=== PATIENT | male | born 1985 | race Caucasian/White ===

== ENCOUNTER 2019-09-13 14:55 | Outpatient (REF) | payer OTHER, SELFPAY | END 2019-09-13 15:15 | LOC: LBN 14:55 | PROVIDERS: PCP Family Medicine; Visit Provider Family Medicine | DX: R63.4 Abnormal weight loss (principal) | CPT/HCPCS: 87177 ==

== ENCOUNTER 2021-12-18 14:55 | Outpatient (CLI) | payer OTHER, SELFPAY ==
--- NOTE | 2021-12-18 14:45 | RT.EKG_ITS ---
APPROVED REPORT Exam: Resting ECG Reason for Exam: Baseline EKG for concerta use Patient Location: O HR:90 bpm ECG Measurements Heart Rate 90 AXIS WI 141 P 79 QRSd 93 QRS 62 QT 315 T 63 QTc 386 Conclusion Sinus rhythm...normal P axis, V-rate 50- 99 ST elev, probable normal early repol pattern...ST elevation, age<55
== END 2021-12-18 14:56 | disposition home or self-care (01) ==
LOC: DI.KIM 14:56
PROVIDERS: PCP Family Medicine; Visit Provider Family Medicine
DX: Z79.899 Other long term (current) drug therapy (principal)
CPT/HCPCS: 93010

== ENCOUNTER 2022-03-23 13:07 | Outpatient (CLI) | payer OTHER, SELFPAY ==
--- NOTE | 2022-03-23 09:15 | DI.RAD_ITS ---
Exam(s) XR CHEST 2V PA LATERAL EXAM: XR CHEST 2V PA LATERAL CLINICAL HISTORY: 6 months of cough of without obvious cause,r05.3. TECHNIQUE: 2D digital imaging was performed. COMPARISON: No exams were available for comparison FINDINGS: 2 views: Heart size is normal. The mediastinum is not widened. Lungs are clear. No infiltrates nor pleural effusions. IMPRESSION: No acute pulmonary findings. DATA REPOSITORY: RADIATION DOSE DELIVERED:
== END 2022-03-23 13:27 ==
LOC: DI 13:08
PROVIDERS: PCP Family Medicine; Visit Provider Family Medicine
DX: R05.3 Chronic cough (principal)
CPT/HCPCS: 71046

== ENCOUNTER 2022-04-05 02:53 | Outpatient (CLI) | payer OTHER, SELFPAY ==
[2022-04-05 10:22] LABS: Abs Immature Grans 0.01 10^3/uL (0.0-0.06); Absolute Basophil Count 0.04 10^3/uL (0.0-0.2); Absolute Eosinophil Count 0.18 10^3/uL (0.0-0.7); Absolute Lymphocyte Count 1.89 10^3/uL (1.2-3.4); Absolute Monocyte Count 0.57 10^3/uL (0.1-0.8); Absolute Neutrophil Count 3.45 10^3/uL (1.2-6.7); Basophils % 0.7; Eosinophils % 2.9; HCT 49.2 % (40.0-50.0); HGB 16.4 g/dL (13.5-17.5); Immature Grans % 0.2; Lymphocytes % 30.8; MCH 29.7 pg (27.0-33.0); MCHC 33.3 % (32.0-36.0); MCV 89 fL (80-95); MPV 8.9 fL (8.0-11.0); Monocytes % 9.3; Neutrophils % 56.1; Platelet Count 236 10^3/uL (130-400); RBC 5.52 10^6/uL (4.36-5.78); RDW 11.9 % (11.8-14.1); RDW-SD 38.3 fL; WBC 6.14 10^3/uL (4.4-10.8)
[2022-04-05 10:48] LABS: ALT 50 U/L (16-63); AST 22 U/L (15-37); Albumin 4.3 g/dL (3.4-5.0); Alkaline Phosphatase 86 U/L (46-116); Anion Gap 4.8 mmol/L (3-11); BUN 12 mg/dL (7-18); CO2 33.2 mmol/L (21.0-32.0); CREATININE 1.1 mg/dL (0.70-1.30); Calcium 9.6 mg/dL (8.5-10.1); Calculated LDL 93 mg/dL (<100); Chloride 104 mmol/L (98-107); Cholesterol 202 mg/dL (<200); Estimated GFR 90.34 (mL/min/1.73m2); Glucose 94 mg/dL (74-106); HDL Cholesterol 80 mg/dL (40-60); Sodium 142 mmol/L (136-145); Total Protein 8.1 g/dL (6.4-8.2); Triglyceride 147 mg/dL (<150)
[2022-04-06 10:21] LABS: Hepatitis C Ab w Rflx HCV PCR Negative (Negative)
[2022-04-06 10:33] LABS: HIV-1/2 Ag & Ab Screen Negative (Negative)
[2022-04-07 09:44] LABS: IgE 341 IU/mL (<158)
== END 2022-04-05 02:54 | disposition home or self-care (01) ==
LOC: LBO 02:53
PROVIDERS: Absent Provider Family Medicine; PCP Family Medicine; Referring Provider Family Medicine; Visit Provider Family Medicine
DX: Z13.220 Encounter for screening for lipoid disorders (principal); R05.3 Chronic cough; Z11.3 Encounter for screening for infections with a predominantly sexual mode of transmission
CPT/HCPCS: 36415; 80053; 80061; 86803; 87389; 82785; 85025

== ENCOUNTER 2022-05-11 04:02 | Outpatient (CLI) | payer OTHER, SELFPAY ==
[2022-05-11] MEDS: Methacholine 100 MG VIAL IH (12:25)
[2022-05-11] MEDS: Albuterol HFA 18 GM 200 PUFF INH IH (12:26)
[2022-05-11] MEDS: Inhaler, Assist Device 1 EACH MC (12:26)
--- NOTE | 2022-05-13 10:32 | PFT_ITS ---
Date of service: 05/11/22 Time of Service: 10:07 Pulmonary Function Test Result Indications: Chronic cough Interpretation Spirometry: There is mild airflow limitation. There was a 34% decrease in FEV1% with admini stration of 1mg/mL methacholine. Lung Volumes: Normal lung volumes Diffusion Capacity: Normal diffusion Airway Pressure: Normal airways resistance Impression Mild airflow obstruction with a strongly positive methacholine challenge. Clinical Correlation therefore is recommended.
== END 2022-05-11 04:03 | disposition home or self-care (01) ==
LOC: RT 04:02
PROVIDERS: PCP Family Medicine; Visit Provider Student in an Organized Health Care Education/Training Program
DX: R05.3 Chronic cough (principal)
CPT/HCPCS: 94060; 94070; 94726; 94729; 94010; J7674

== ENCOUNTER 2023-07-19 16:28 | Outpatient (CLI) | payer OTHER, SELFPAY ==
[2023-07-19 16:24] LABS: Abs Immature Grans 0.02 10^3/uL (0.0-0.06); HCT 48.1 % (40.0-50.0); HGB 16.1 g/dL (13.5-17.5); MCH 29.6 pg (27.0-33.0); MCHC 33.5 % (32.0-36.0); MCV 88 fL (80-95); MPV 9.5 fL (8.0-11.0); Platelet Count 131 10^3/uL (130-400); RBC 5.44 10^6/uL (4.36-5.78); WBC 10.11 10^3/uL (4.4-10.8)
[2023-07-19 16:33] LABS: Bilirubin Small (Negative); Blood Negative (Negative); Clarity Clear (Clear); Glucose Negative (Negative); Ketones Trace mg/dL (Negative); Leukocyte Esterase Negative (Negative); Nitrite Negative (Negative); Specific Gravity >= 1.030 (1.005-1.025); pH 5.5 (5-8)
[2023-07-19 16:40] LABS: Absolute Lymphocyte Count 6.37 10^3/uL (1.2-3.4); Absolute Monocyte Count 0.81 10^3/uL (0.1-0.8); Absolute Neutrophil Count 2.83 10^3/uL (1.2-6.7); Atypical Lymphocytes % 12 %
[2023-07-19 16:41] LABS: Diff Comment Manual Differential; RBC Morphology Normal
[2023-07-19 16:48] LABS: RBC 0-2 HPF (0-2); WBC 0-2 HPF (0-5)
[2023-07-19 16:49] LABS: Bacteria Negative HPF (Negative); C & S Indicated? No; Crystals Negative HPF (Negative); Epithelial Cells Rare HPF (Negative); Mucus Heavy (Negative)
[2023-07-19 17:39] LABS: ALT 205 U/L (16-63); AST 108 U/L (15-37); Albumin 3.9 g/dL (3.4-5.0); Alkaline Phosphatase 246 U/L (46-116); Anion Gap 8.3 mmol/L (3-11); BUN 9 mg/dL (7-18); Bilirubin, Total 1.2 mg/dL (0.2-1.0); C-Reactive Protein 1.33 mg/dL (<or=0.5); CO2 30.7 mmol/L (21.0-32.0); CREATININE 1.1 mg/dL (0.70-1.30); Calcium 8.9 mg/dL (8.5-10.1); Chloride 103 mmol/L (98-107); Estimated GFR 89.78 (mL/min/1.73m2); Glucose 91 mg/dL (74-106); Potassium 3.8 mmol/L (3.5-5.1); Sodium 142 mmol/L (136-145); TSH (W/Ref FT4) 2.84 uIU/mL (0.36-3.74); Total Protein 7.4 g/dL (6.4-8.2)
[2023-07-21 11:58] LABS: Lyme Ab w Rflx to Lyme Confirm Negative (Negative)
[2023-07-22 23:38] LABS: Anaplasma phagocytophilum Negative (Negative); B. miyamotoi PCR Negative (Negative); Babesia divergens/MO-1 Negative (Negative); Babesia duncani Negative (Negative); Babesia microti Negative (Negative); Ehrlichia chaffeensis Negative (Negative); Ehrlichia ewingii/canis Negative (Negative); Ehrlichia muris eauclairensis Negative (Negative)
== END 2023-07-19 16:29 | disposition home or self-care (01) ==
LOC: LBO 16:28
PROVIDERS: Nurse Practitioner Adult Health; PCP Family Medicine; Visit Provider Family Medicine
DX: R50.9 Fever, unspecified (principal)
CPT/HCPCS: 36415; 80053; 87798; 81003; 81015; 84443; 85025; 86140; 86618

== ENCOUNTER 2023-07-25 10:44 | Outpatient (CLI) | payer OTHER, SELFPAY ==
[2023-07-25 16:58] LABS: Abs Immature Grans 0.01 10^3/uL (0.0-0.06); HCT 48.1 % (40.0-50.0); HGB 16.1 g/dL (13.5-17.5); MCH 29.7 pg (27.0-33.0); MCHC 33.5 % (32.0-36.0); MCV 89 fL (80-95); MPV 8.9 fL (8.0-11.0); Platelet Count 210 10^3/uL (130-400); RBC 5.43 10^6/uL (4.36-5.78); RDW 12.6 % (11.8-14.1); RDW-SD 40.5 fL; WBC 7.25 10^3/uL (4.4-10.8)
[2023-07-25 17:28] LABS: Absolute Eosinophil Count 0.15 10^3/uL (0.0-0.7); Absolute Lymphocyte Count 4.57 10^3/uL (1.2-3.4); Absolute Monocyte Count 0.73 10^3/uL (0.1-0.8); Absolute Neutrophil Count 1.81 10^3/uL (1.2-6.7); Atypical Lymphocytes % 3 %; Diff Comment Manual Differential; RBC Morphology Normal
[2023-07-25 19:30] LABS: ALT 203 U/L (16-63); AST 86 U/L (15-37); Albumin 3.9 g/dL (3.4-5.0); Alkaline Phosphatase 259 U/L (46-116); Anion Gap 10.2 mmol/L (3-11); BUN 17 mg/dL (7-18); Bilirubin, Total 1.1 mg/dL (0.2-1.0); CO2 25.8 mmol/L (21.0-32.0); CREATININE 1.1 mg/dL (0.70-1.30); Calcium 8.8 mg/dL (8.5-10.1); Chloride 105 mmol/L (98-107); Estimated GFR 89.78 (mL/min/1.73m2); Glucose 83 mg/dL (74-106); Sodium 141 mmol/L (136-145); Total Protein 7.5 g/dL (6.4-8.2)
[2023-07-27 11:05] LABS: EBNA IgG Negative (Negative); EBV Interpretation (See Note); VCA IgG Positive (Negative); VCA IgM Positive (Negative)
[2023-07-27 11:24] LABS: Hepatitis A Antibody IgM Negative (Negative); Hepatitis B Core Antibody Negative (Negative); Hepatitis B surface Ag Negative (Negative); Hepatitis C Ab w Rflx HCV PCR Negative (Negative)
== END 2023-07-25 10:45 | disposition home or self-care (01) ==
LOC: LBO 07-26 10:45
PROVIDERS: PCP Family Medicine; Visit Provider Nurse Practitioner Adult Health
DX: R74.01 Elevation of levels of liver transaminase levels (principal); R50.9 Fever, unspecified; R53.83 Other fatigue
CPT/HCPCS: 36415; 80053; 86704; 86709; 86803; 87340; 85025; 86664; 86665

== ENCOUNTER 2023-07-25 16:47 | Outpatient (REF) | payer OTHER, SELFPAY | END 2023-07-25 16:48 | disposition home or self-care (01) | LOC: LBN 16:47 | PROVIDERS: PCP Family Medicine; Visit Provider Nurse Practitioner Adult Health | DX: J02.9 Acute pharyngitis, unspecified (principal) | CPT/HCPCS: 87070 ==

== ENCOUNTER 2023-07-27 11:51 | Outpatient (CLI) | payer OTHER, SELFPAY ==
[2023-07-27 13:05] LABS: Mono Screening POSITIVE (Negative)
== END 2023-07-27 11:52 | disposition home or self-care (01) ==
LOC: LBO 11:54
PROVIDERS: PCP Family Medicine; Visit Provider Nurse Practitioner
DX: R53.83 Other fatigue (principal); R50.9 Fever, unspecified; R74.01 Elevation of levels of liver transaminase levels; J02.9 Acute pharyngitis, unspecified
CPT/HCPCS: 36415; 86308

== ENCOUNTER 2023-08-29 02:07 | Outpatient (CLI) | payer OTHER, SELFPAY ==
[2023-08-29 12:48] LABS: ALT 26 U/L (16-63); AST 15 U/L (15-37); Alkaline Phosphatase 79 U/L (46-116); Anion Gap 5.8 mmol/L (3-11); BUN 16 mg/dL (7-18); Bilirubin, Total 0.89 mg/dL (0.2-1.0); CO2 32.2 mmol/L (21.0-32.0); Chloride 106 mmol/L (98-107); Estimated GFR 100.66 (mL/min/1.73m2); Glucose 95 mg/dL (74-106); Potassium 4.2 mmol/L (3.5-5.1); Sodium 144 mmol/L (136-145); Total Protein 7.6 g/dL (6.4-8.2)
== END 2023-08-29 02:08 | disposition home or self-care (01) ==
PROVIDERS: PCP Family Medicine; Referring Provider Family Medicine; Visit Provider Nurse Practitioner Adult Health
DX: R74.01 Elevation of levels of liver transaminase levels (principal)
CPT/HCPCS: 36415; 80053

== ENCOUNTER 2024-03-16 04:43 | Emergency (ER) | payer BC, SELFPAY ==
[2024-03-16 04:45] VITALS: BP 129/45; PULSE 96; RESP 22; TEMP 37; O2SAT 97
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
[2024-03-16 05:00] LABS: Lactate 1.2 mmol/L (<or=2.0)
[2024-03-16] MEDS: ACETAMINOPHEN 1,000 MG/100 ML BAG 400 MG IVPB (05:01)
[2024-03-16] MEDS: Ketorolac 15 MG/ML VIAL IVP (05:01)
[2024-03-16] MEDS: Normal Saline 1,000 ML 1000 ML IV (05:02)
[2024-03-16 05:03] LABS: Abs Immature Grans 0.02 10^3/uL (0.0-0.06); Absolute Basophil Count 0.04 10^3/uL (0.0-0.2); Absolute Eosinophil Count 0.15 10^3/uL (0.0-0.7); Absolute Lymphocyte Count 1.51 10^3/uL (1.2-3.4); Absolute Monocyte Count 0.77 10^3/uL (0.1-0.8); Absolute Neutrophil Count 6.12 10^3/uL (1.2-6.7); Basophils % 0.5 %; Eosinophils % 1.7 %; HCT 47.2 % (40.0-50.0); HGB 16.2 g/dL (13.5-17.5); Immature Grans % 0.2 %; Lymphocytes % 17.5 %; MCH 30.3 pg (27.0-33.0); MCHC 34.3 % (32.0-36.0); MCV 88 fL (80-95); Monocytes % 8.9 %; Neutrophils % 71.2 %; Platelet Count 230 10^3/uL (130-400); RBC 5.34 10^6/uL (4.36-5.78); RDW 11.5 % (11.8-14.1); WBC 8.61 10^3/uL (4.4-10.8)
[2024-03-16 05:17] LABS: ALT 39 U/L (16-63); AST 16 U/L (15-37); Albumin 4.1 g/dL (3.4-5.0); Alkaline Phosphatase 71 U/L (46-116); Anion Gap 6.7 mmol/L (3-11); BUN 12 mg/dL (7-18); Bilirubin, Total 1.69 mg/dL (0.2-1.0); CO2 29.3 mmol/L (21.0-32.0); CREATININE 1.2 mg/dL (0.70-1.30); Calcium 9.5 mg/dL (8.5-10.1); Chloride 102 mmol/L (98-107); Estimated GFR 80.38 (mL/min/1.73m2); Glucose 121 mg/dL (74-106); Potassium 3.6 mmol/L (3.5-5.1); Sodium 138 mmol/L (136-145); Total Protein 7.4 g/dL (6.4-8.2)
[2024-03-16] MEDS: Tamsulosin 0.4 MG CAPCR PO (05:29)
--- NOTE | 2024-03-16 05:30 | DI.CT_ITS ---
Exam(s) CT ABDOMEN PELVIS WO EXAM: CT ABDOMEN PELVIS WO CLINICAL HISTORY: left flank pain, eval kidney stone vs divertic. TECHNIQUE: Imaging Protocol: Axial computed tomography images with coronal and sagittal reformatted images were created and reviewed. Oral: no COMPARISON: No exams were available for comparison FINDINGS: Lung Bases: No acute findings. Liver: Normal density. No suspicious mass. Gallbladder and biliary tract: No radiodense calculus or biliary dilation. Pancreas: Normal density. No abnormal calcifications or inflammatory process. Spleen: Normal. Kidneys: Normal size, contour and axis. Mild left hydronephrosis secondary to a 4 millimeter stone i n the upper left ureter. No additional calculi are identified. No suspicious masses seen. Adrenal glands: No masses seen. Lymph nodes: Within normal limits. Vasculature: Abdominal aorta non-dilated. Soft tissues: Unremarkable. Bladder: No wall thickening. No mass or calculi. Bowel: No obstruction or bowel wall thickening. Peritoneal cavity: No ascites. No focal collection. No mesenteric inflammatory response. Reproductive organs: Unremarkable. Bones: Unremarkable for age. IMPRESSION: Mild left hydronephrosis secondary to a 4 millimeter stone at the upper ureter. No additional calcul i. RADIATION DOSE DELIVERED: 605.88mGy.cm Total DLP DATA REPOSITORY: All CT scans at this facility are submitted to the National Radiology Data Registry (NRDR) Dose Index Registry (DIR) with the [employer] (ACR). RADIATION OPTIMIZATION: All CT scans at this facility use at least one of these dose optimization te chniques: automated exposure control; mA and/or kV adjustment per patient size (includes targeted exa ms where dose is matched to clinical indication); or iterative reconstruction.
--- NOTE | 2024-03-16 05:48 | DI.VRAD_ITS ---
PROCEDURE INFORMATION: Exam: CT Abdomen And Pelvis Without Contrast Exam date and time: 03/16/2024 5:20 AM Age: 38 years old Clinical indication: Abdominal pain; Left flank pain, eval kidney stone vs divertic. Patient says they have no HX of kidney stone and no visible blood in urine TECHNIQUE: Imaging protocol: Computed tomography of the abdomen and pelvis without contrast. Radiation optimization: All CT scans at this facility use at least one of these dose optimization techniques: automated exposure control; mA and/or kV adjustment per patient size (includes targeted exams where dose is matched to clinical indication); or iterative reconstruction. COMPARISON: No relevant prior studies are available for comparison. FINDINGS: Limitations: No intravenous contrast was administered, limiting evaluation for some pathologies. Liver: Mild hepatomegaly. Gallbladder and biliary ducts: No radiodense gallbladder calculi seen. Pancreas: No CT evidence for acute pancreatitis. Spleen: No splenomegaly. Adrenal glands: Adrenal thickening. Kidneys and ureters: Left hydroureteronephrosis. 5 mm calculus in the mid left ureter. Stomach and bowel: No intestinal obstruction appreciated. Appendix: No evidence of appendicitis. Intraperitoneal space: No free air. Vasculature: No abdominal aortic aneurysm. Lymph nodes: Nonspecific mesenteric and retroperitoneal lymph nodes. Urinary bladder: No acute findings. Reproductive: No acute findings. Bones/joints: No pertinent acute abnormality seen. Soft tissues: No pertinent acute abnormality seen. IMPRESSION: Obstructing left ureteral calculus. Dictated and Authenticated by: Vianney Min MD. Orderin Mandy Reich MD
[2024-03-16 07:23] LABS: Bilirubin Negative (Negative); Blood Large (Negative); Clarity Sl Cloudy (Clear); Glucose Negative (Negative); Ketones 40 mg/dL (Negative); Leukocyte Esterase Negative (Negative); Nitrite Negative (Negative); Urobilinogen 0.2 mg/dL (Up to 0.2); pH 5.5 (5-8)
[2024-03-16 07:26] VITALS: BP 128/70; PULSE 64; RESP 16; O2SAT 98
[2024-03-16 07:36] LABS: Bacteria Few HPF (Negative); C & S Indicated? No; Casts Negative LPF (Negative); Crystals Negative HPF (Negative); Epithelial Cells Rare HPF (Negative); Mucus Negative (Negative); Other Cells Negative (Negative); RBC >50 HPF (0-2)
== END 2024-03-16 08:00 | disposition home or self-care (01) ==
PROVIDERS: Emergency Provider Student in an Organized Health Care Education/Training Program; PCP Family Medicine
DX: N20.0 Calculus of kidney (principal)
CPT/HCPCS: 36415; 80053; 96361; 96374; 96375; 99284; 74176; 81003; 81015; 83605; 85025; J0131; J1885

== ENCOUNTER 2024-04-05 15:19 | Outpatient (REF) | payer BC, SELFPAY ==
[2024-04-17 12:54] LABS: Source: Left Ureter
== END 2024-04-05 15:20 | disposition home or self-care (01) ==
LOC: LBN 15:19
PROVIDERS: PCP Family Medicine; Visit Provider Urology
DX: N20.0 Calculus of kidney (principal)
CPT/HCPCS: 82365

== ENCOUNTER 2024-05-18 09:11 | Outpatient (CLI) | payer BC, SELFPAY ==
[2024-05-19 11:34] LABS: HIV-1/2 Ag & Ab Screen Negative (Negative)
[2024-05-21 09:12] LABS: Hepatitis C Ab w Rflx HCV PCR Negative (Negative)
[2024-05-21 12:02] LABS: Hep B Surface Ab Positive (See Note); Hepatitis B Core Antibody Negative (Negative); Hepatitis B Surface Antigen Negative (Negative)
[2024-05-21 12:35] LABS: Syphilis Serology (RPR) Negative (Negative)
[2024-05-21 12:44] LABS: Chlamydia Result Negative (Negative); GC Result Negative (Negative)
[2024-05-28 15:41] LABS: Testosterone, Free 19.2 ng/dL (4.65-18.1); Testosterone, Total 581 ng/dL (240-950)
== END 2024-05-18 09:12 | disposition home or self-care (01) ==
LOC: LBO 09:11
PROVIDERS: Urology; PCP Family Medicine; Visit Provider Nurse Practitioner
DX: N50.0 Atrophy of testis (principal); Z11.3 Encounter for screening for infections with a predominantly sexual mode of transmission
CPT/HCPCS: 36415; 84402; 84403; 86704; 86706; 86803; 87340; 87389; 87491; 87591; 86592